=== PATIENT | female | born 1985 ===

== ENCOUNTER 2017-04-28 23:31 | Emergency (ER) | payer SELFPAY ==
[2017-04-28 23:52] VITALS: BP 117/76; PULSE 94; RESP 16; TEMP 98.2; O2SAT 100
--- NOTE | 2017-04-29 00:18 | ED PDOC ---
HPI: Dental Pain/Injury Time Seen by Provider: 04/29/17 00:03 Chief Complaint (Nursing): Dental Pain Chief Complaint (Provider): right lower mouth pain History Per: Patient History/Exam Limitations: no limitations Onset/Duration Of Symptoms: Days (3) Current Symptoms Are (Timing): Still Present Dental: 1 - pain Additional History Per: Patient Additional Complaint(s): 31 y/o female, approx 37 weeks gestation, presents for eval of right lower mouth pain x 3 days. Patient states she had molar removed on Saturday, and has been taking Tylenol for pain with little relief. Patient states that was her first visit to the dentist for pain to right and left lower molars; she states xray's were done on both sides of mouth and the right lower molar was pulled that same day. She denies taking antibiotics. Denies fever, facial pain/swelling , difficulty swallowing. Past Medical History Reviewed: Historical Data, Nursing Documentation, Vital Signs Vital Signs: Last Vital Signs Temp 98.2 F 04/28/17 23:49 Pulse 94 H 04/28/17 23:49 Resp 16 04/28/17 23:49 BP 117/76 04/28/17 23:49 Pulse Ox 100 04/28/17 23:49 - Medical History PMH: No Chronic Diseases - Family History Family History: States: Unknown Family Hx - Home Medications Home Medications: Ambulatory Orders Medication Instructions Recorded Amoxicillin/Clavulanate [Augmentin 1 tab PO Q12 #14 tab 04/29/17 875 MG-125 MG] - Allergies Allergies/Adverse Reactions: Allergies Allergy/AdvReac Type Severity Reaction Status Date / Time No Known Allergies Allergy Verified 04/28/17 23:48 Review of Systems ROS Statement: Except As Marked, All Systems Reviewed And Found Negative ENT: Positive for: Mouth Pain (right lower tooth pain) Physical Exam - Reviewed Nursing Documentation Reviewed: Yes Vital Signs Reviewed: Yes - Physical Exam Appears: Positive for: Well, Non-toxic, No Acute Distress Head Exam: Positive for: ATRAUMATIC, NORMAL INSPECTION, NORMOCEPHALIC ENT: Positive for: TM Is/Are (clear b/l), Other (right 2nd lower molar absent with surrounding gum tenderness. No gum swelling, abscess formation noted. No facial swelling/erythema noted. Airway patent.) Cardiovascular/Chest: Positive for: Regular Rate, Rhythm Respiratory: Positive for: Normal Breath Sounds Lymphatic: Positive for: Normal Exam Neurologic/Psych: Positive for: Alert, Oriented - ECG O2 Sat by Pulse Oximetry: 100 - Progress ED Course And Treament: tylenol PO Patient educated on findings, discharged with rx Augmentin. Advised follow up dentist 2-3 days. Orajel, tylenol PRN pain. Return to ED for worsening/concerning symptoms. Disposition - Clinical Impression Clinical Impression: Mouth pain - Patient ED Disposition Is Patient to be Admitted: No Counseled Patient/Family Regarding: Diagnosis, Need For Followup, Rx Given - Disposition Disposition: Routine/Home Disposition Time: 00:26 Condition: GOOD Prescriptions: Amoxicillin/Clavulanate [Augmentin 875 MG-125 MG] 1 tab PO Q12 #14 tab Instructions: Toothache (ED), Tooth Extraction (ED) Print Language: JAPANESE
== END 2017-04-29 01:10 | disposition home or self-care (01) ==
LOC: H.ER 23:31
DX: K13.79 Other lesions of oral mucosa (principal)